=== PATIENT | male | born 1980 | race Caucasian/White ===

== ENCOUNTER 2025-01-27 18:57 | Emergency (ER) | payer BC, SELFPAY ==
[2025-01-27 19:02] VITALS: BP 177/130
[2025-01-27 19:33] VITALS: BP 150/67
[2025-01-27 19:35] VITALS: BMI 44.5
[2025-01-27 20:02] VITALS: BP 178/86
[2025-01-27 20:11] LABS: % Basophils 0.1 % (0-2); % Eosinophils 0.4 % (0-6); % Immature Granulocytes 0.4 % (0-0.5); % Monocytes 7.4 % (1.7-9.3); % Neutrophils 76.7 % (42.2-75.2); Absolute Lymphocytes 1.2 10^3/uL (1.2-3.4); Absolute Monocytes 0.6 10^3/uL (0.1-0.6); Hematocrit 38.7 % (39.0-52.0); Hemoglobin 13.4 g/dL (13.0-18.0); Mean Corp Hgb Conc. 34.6 g/dL (33.0-37.0); Mean Corpuscular Hgb 29.1 pg (27.0-31.0); Mean Corpuscular Volume 83.9 fL (80.0-94.0); Mean Platelet Volume 9.1 fL (7.4-10.4); Nucleated Red Blood Cells % 0 % (-); Platelet Count 272 10^3/uL (130-400); Red Blood Cell Count 4.61 10^6/uL (4.70-6.10); Red Cell Dist. Width 12.8 % (11.5-14.5); White Blood Cell Count 7.8 10^3/uL (4.8-10.8)
[2025-01-27 20:39] LABS: ALT (SGPT) 35 U/L (0-50); AST (SGOT) 35 U/L (17-59); Albumin 4.5 g/dl (3.5-5.0); Alkaline Phosphatase 57 U/L (38-126); Blood Urea Nitrogen 23 mg/dl (9-20); Calcium 9.2 mg/dl (8.4-10.2); Carbon Dioxide 26 mmol/L (22-30); Chloride 107 mmol/L (98-107); Estimated Creatinine Clearance > 125 ml/min; Glucose 129 mg/dl (70-99); Lipase 90 U/L (23-300); Sodium 140 mmol/L (135-145); Total Bilirubin 0.8 mg/dl (0.2-1.3); Total Protein 7.6 g/dl (6.3-8.2); eGFR > 60.00
[2025-01-27] MEDS: MORPHINE SULFATE 4 MG IV (20:43)
[2025-01-27] MEDS: ZOFRAN 4 MG IV (20:43)
[2025-01-27] MEDS: NSS 1000 IV (20:49)
[2025-01-27 20:53] VITALS: BP 183/100
[2025-01-27] MEDS: ATIVAN 1 MG IV (20:53)
--- NOTE | 2025-01-27 20:53 | ED.GENMED ---
History of Present Illness
General
Chief Complaint: Abdominal Pain
Time Seen by Provider: 01/27/25 19:40
History of Present Illness
History of Present Illness:
44-year-old male with history of diabetes on Ozempic presenting for persistent abdominal discomfort and vomiting. Patient reports that last week he went to [place] for a baseball tournament with his son. He started to have nausea, vomiting,
abdominal discomfort. He was admitted to the hospital, however no significant pathology was found. Patient reports being discharged 4 days ago, flew home. Today he again started to have generalized abdominal discomfort, anxiety, vomiting.
Preceding onset of symptoms prior to trip to [place], his dose was increased. No report of any diarrhea. Patient denies any abdominal surgeries in the past. He denies any fever. He denies any underlying history of anxiety, however has been
increasingly anxious due to recent symptoms. Denies additional acute medical complaint
Phy Exam
Physical Exam
Physical Exam:
General: Well-appearing, no clinical signs of dehydration, nontoxic and in no acute distress
HEENT: protecting airway
Neck: appears supple
CV: Normal heart rate, regular rhythm
Resp: No accessory muscle use, no increased work of breathing, lungs clear to auscultation bilaterally
Abd: Soft and non-distended, mild generalized nonfocal tenderness
Extremities: No deformities, no swelling
Neuro: alert, no focal neurologic deficit
: deferred
Rectal: deferred
Psych: Normal affect
Skin: Intact
Course
Orders/Labs/Results
Orders:
Orders
01/27/25 19:06
EKG [Electrocardiogram (*1)] Urgent
Reason for Study: Abdominal Pain
EKG- Treatment ONCE
01/27/25 20:00
Complete Blood Count/With Diff Urgent
Comprehensive Metabolic Panel Urgent
Lipase Urgent
01/27/25 20:21
CT Abd/pelvis W Iv Cont Urgent
Comment:
Reason For Exam: generalized pain and vomiting, on ozempic
0.9% Sodium Chloride 1000 ml [Nss] 1,000 ml IV BOLUS
Lorazepam [Ativan] 1 mg IV NOW STA
Morphine Sulfate 4 mg IV NOW STA
Ondansetron Injectable [Zofran] 4 mg IV NOW STA
Abnormal Lab Results
01/27/25
20:00
RBC 4.61 L 10^6/uL
(4.70-6.10)
Hct 38.7 L %
(39.0-52.0)
Neutrophils % 76.7 H %
(42.2-75.2)
Lymphocytes % 15.0 L %
(20.5-51.1)
BUN 23 H mg/dl
(9-20)
Glucose 129 H mg/dl
(70-99)
01/27/25 20:00
01/27/25 20:00
Vital Signs
Initial and Last Documented VS:
Initial Vital Signs
Temp Pulse Resp BP Pulse Ox
97.8 F 102 24 177/130 99
01/27/25 19:02 01/27/25 19:02 01/27/25 19:02 01/27/25 19:02 01/27/25 19:02
Last Documented Vital Signs
Temp Pulse Resp BP Pulse Ox
97.8 F 95 18 144/69 96
01/27/25 19:02 01/27/25 21:45 01/27/25 21:45 01/27/25 21:21 01/27/25 21:45
MDM/Problems Addressed
MDM/Problems Addressed:
44-year-old male with history of diabetes on Ozempic presenting to the emergency department for nausea, vomiting, abdominal pain for the past week. Vital signs on arrival are significant for high blood pressure and tachycardia, however patient
very anxious .
On exam patient is in no acute distress, generalized nonfocal tenderness. No rebound or guarding. Patient is otherwise afebrile, nontoxic. Ultimately suspect that symptoms are from medication reaction. Patient notes that symptoms started after
his dose increased for Ozempic, had unremarkable workup [id number]. Given persistence of symptoms, no present records available from the hospital in [place], will repeat laboratory analysis and CT imaging to ensure no complicating features such as
obstruction or intra-abdominal infection. For therapeutics, patient is requesting anxiety medications. Will also administer pain medication and Zofran.
23:20 - On reassessment, patient reports that he is feeling much better. Labs are unremarkable and CT without any acute pathology. At this time feel that patient is stable for discharge, improved vital signs. Recommending close outpatient primary
care follow-up regarding his plan with the Ozempic going forward. He is requesting a prescription for anxiety medication. Will provide a few days. Will also prescribe antiemetic. Strict return precautions communicated and patient verbalized
understanding.
*Pulse Oximetry
SaO2: 95
Oxygen Mode of Delivery: Room air
*Critical Care Note
Total Time (30-74mins, 75-104mins- exclusive of procedures): Not Applicable
ED Attending Note
-
Portions of this chart may have been created with voice recognition software.� Occasional wrong word or��sound alike� substitutions may have occurred due to the inherent limitations of voice recognition software.
Discharge Plan
Departure
Referrals:
Sophie Toledo CRNP [Family Provider]
Interventions
Interventions:
*Risk Screen - Suicide Last Done: 01/27/25 19:02
*General Assessment Last Done: 01/27/25 19:02
*Neglect/Abuse Screening Last Done: 01/27/25 19:02
*ED- Fall Risk Assessment Last Done: 01/27/25 19:40
*ED COVID-19 Vaccine History Last Done: 01/27/25 19:40
PN-Jkqyrw-Pwyenoqkfn Assessment Last Done: 01/27/25 19:40
Discharge Date and Time
Print Language: MALAGASY
[2025-01-27 21:21] VITALS: BP 144/69
[2025-01-27 23:13] VITALS: BP 164/86
== END 2025-01-27 23:39 | disposition home or self-care (01) ==
LOC: EMR 18:57
PROVIDERS: EMERGENCY PHYSICIAN Student in an Organized Health Care Education/Training Program; FAMILY PHYSICIAN Nurse Practitioner
DX: R10.9 Unspecified abdominal pain (principal); T38.3X5A Adverse effect of insulin and oral hypoglycemic [antidiabetic] drugs, initial encounter; E11.9 Type 2 diabetes mellitus without complications
CPT/HCPCS: 99285; 96374; 96375 ×2; 74177; 80053; 83690; 85025; 93005; Q9967

== ENCOUNTER 2025-01-29 10:43 | Emergency (ER) | payer BC, SELFPAY ==
[2025-01-29 10:49] VITALS: BP 182/95
--- NOTE | 2025-01-29 12:36 | ED.GENMED ---
History of Present Illness
General
Chief Complaint: Abdominal Symptoms
Source: patient and spouse
Exam Limitations: none
Time Seen by Provider: 01/29/25 12:25
Nursing documentation reviewed up to this point in time: agreed with
History of Present Illness
History of Present Illness:
The patient is a 44-year-old male with a past medical history of diabetes mellitus,
Presenting with generalized abdominal pain and nausea frequent vomiting, dry heaves. These symptoms began seven days ago when he was in [place], leading to an emergency room visit. During that visit, computed tomography (CT) scans of the abdomen
and esophagus were performed, and he was given intravenous fluids and medications for pain, nausea, and anxiety. He was admitted in ED for 3 days, then left to come home He reports continuous vomiting and inability to retain food or water.
Evaluated here 2 days ago for similar symptoms and had neg w/u including EKG, labs, lipase, CT abd/pelvis w IV contrast
Over past 7 days, he also experienced increased anxiety and episodes of hypertension, which are new for him. He reports stabbing abdominal pain and chills but didn't take temperature.
Pt states pain is 9/10, gnawing, burning upper abdomen.
Denies chest pain, or trouble breathing. states there was concern that the symptoms may be related to Ozempic (semaglutide), which he has been taking weekly for diabetes management, Metformin DC'd and started on Ozempic 6 months ago, upped from
1 mg to 2 mg weekly 14 days ago. Scheduled for out of town business trip so took his Ozempic 4 days early last week. Has had none since, missed this past weeks dose.
Past History
Past History
ED Past Medical History: NIDDM
ED Past Surgical History: Orthopedic
Social History
Tobacco: Non-smoker
Alcohol: Occasional
Personal:
Living: with family
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 However, there are no new sources of work-related stress reported.)
Review of Systems
Review of Systems
Allergies reviewed?: Yes
All Other Systems: ROS reviewed and negative except as documented in HPI and ROS
Constitutional: Reports chills; Denies fever
Respiratory: Denies trouble breathing
Cardiac: Denies chest pain
ABD/GI: Reports abdominal pain, nausea and vomiting; Denies diarrhea, bloody stools or black stools
: Denies dysuria, frequency or difficulty voiding
Musculoskeletal: Reports no symptoms
Skin: Reports no symptoms
Neurological: Reports no symptoms
Phy Exam
Physical Exam
Physical Exam:
GENERAL: Moderate distress due to pain, unable to sit still. A&Ox3.
CONSTITUTIONAL: Afebrile.
EYES: clear, conjunctivae normal
ENMT: moist mucus membranes, Pharynx nl
RESPIRATORY: Regular respirations, nonlabored, lungs clear.
CARDIOVASCULAR: Regular rate and rhythm, no murmurs, no rubs.
GI: Soft, morbidly obese, tender mid upper to left upper abdomen. No periumbilical tenderness. normal BS
MUSCULOSKELETAL: Moves with ease. Well perfused.
SKIN: Warm, dry, pink
PSYCH: Anxious mood and affect. Well kept, interactive and appropriate
NEUROLOGIC: Awake, alert and oriented. No focal neurological deficits
Course
Orders/Labs/Results
Orders:
Orders
01/29/25 10:52
EKG [Electrocardiogram (*1)] Urgent
Reason for Study: Fatigue / Weakness
EKG- Treatment ONCE
01/29/25 12:57
Ondansetron Injectable [Zofran] 4 mg IV NOW STA
01/29/25 12:59
0.9% Sodium Chloride 1000 ml [Nss] 1,000 ml IV BOLUS
01/29/25 13:01
HYDROmorphone [Dilaudid] 1 mg IV NOW STA
01/29/25 13:38
Complete Blood Count/With Diff Urgent
Comprehensive Metabolic Panel Urgent
Lactic Acid Urgent
Lipase Urgent
01/29/25 14:38
Pantoprazole [Protonix IV] 80 mg IV NOW STA
01/29/25 14:39
Ondansetron Injectable [Zofran] 4 mg IV NOW STA
Abnormal Lab Results
01/29/25
13:38
Absolute Neuts (auto) 7.8 H 10^3/uL
(1.4-6.5)
Neutrophils % 80.8 H %
(42.2-75.2)
Lymphocytes % 12.5 L %
(20.5-51.1)
Glucose 136 H mg/dl
(70-99)
01/29/25 13:38
01/29/25 13:38
Vital Signs
Initial and Last Documented VS:
Initial Vital Signs
Temp Pulse Resp BP Pulse Ox
98.2 F 89 14 182/95 100
01/29/25 10:49 01/29/25 10:49 01/29/25 10:49 01/29/25 10:49 01/29/25 10:49
Last Documented Vital Signs
Temp Pulse Resp BP Pulse Ox
98.2 F 85 16 168/95 97
01/29/25 14:23 01/29/25 15:31 01/29/25 15:31 01/29/25 15:31 01/29/25 15:31
MDM/Problems Addressed
Differential Diagnosis Includes:
cannabinoid hyperemesis syndrome, GI side effects from THC gummies, Pancreatitis.
MDM/Problems Addressed:
The patient is a 44-year-old male with a past medical history of diabetes mellitus,
Presenting with generalized abdominal pain and nausea frequent vomiting, dry heaves. These symptoms began seven days ago when he was in [place], leading to an emergency room visit. During that visit, computed tomography (CT) scans of the abdomen
and esophagus were performed, and he was given intravenous fluids and medications for pain, nausea, and anxiety. He was admitted in ED for 3 days, then left to come home He reports continuous vomiting and inability to retain food or water.
Evaluated here 2 days ago for similar symptoms and had neg w/u including EKG, labs, lipase, CT abd/pelvis w IV contrast
Over past 7 days, he also experienced increased anxiety and episodes of hypertension, which are new for him. He reports stabbing abdominal pain and chills but didn't take temperature.
Pt states pain is 9/10, gnawing, burning upper abdomen.
Denies chest pain, or trouble breathing. states there was concern that the symptoms may be related to Ozempic (semaglutide), which he has been taking weekly for diabetes management, Metformin DC'd and started on Ozempic 6 months ago, upped from
1 mg to 2 mg weekly 14 days ago. Scheduled for out of town business trip so took his Ozempic 4 days early last week. Has had none since, missed this past weeks dose.
2:30 PM: Back into evaluate patient
CBC, CMP with no clinically significant abnormality
Lipase normal
Patient has been quite comfortable since pain medication and IV fluids, no further vomiting
has copy of patient's records from [facility] that she showed me:
During the visit to the [place] ER, the patient was provided with several medications for symptom management. Lidocaine patches were prescribed for abdominal pain. The patient also received metoclopramide 10 mg tablets for use as needed for
gastrointestinal issues, along with capsaicin cream for abdominal application. Ondansetron was prescribed for nausea, and Miralax was recommended for constipation relief. Additionally, the patients existing medication regimen includes ezetimibe at
an adjusted dose of 2 mg, increased by 1 mg, gabapentin at 300 mg taken three times a day, and tizanidine as previously directed at 20 mg.
Back in and speaking with she informs me that pt does gummies on a daily basis.
Pt states he takes THC gummies, last was 1/2 one 2 days ago, he doesn't take them regularly like he used to.
Explained most likely Hyperemesis due to the THC
He states he threw his gummies out. Instructed not to take any more
Plan: GI follow up, rx for Zofran, Bentyl and Protonix, Capsaicin and Lorazepam sent to his pharmacy.
Tolerating crackers and kia ivett
Notified GI front office spec who will give him a call for appointment
Pt is stable for discharge
*Pulse Oximetry
SaO2: 100
Patient hypoxic: no
*EKG
EKG Intrepretation Date: 01/29/25
Interpretation: normal
Heart Rate: 84
Rate: normal
Rhythm: sinus
[place]: normal axis
Interval: normal interval
QRS Pattern: normal QRS
Ischemia: no ischemia
*Critical Care Note
Total Time (30-74mins, 75-104mins- exclusive of procedures): Not Applicable
ED Attending Note
-
Portions of this chart may have been created with voice recognition software.� Occasional wrong word or��sound alike� substitutions may have occurred due to the inherent limitations of voice recognition software.
Discharge Plan
Departure
Patient Disposition: Home (Routine Discharge)
Date of Disposition: 01/29/25
Time of Disposition: 15:16
Patient with high blood pressure during this ER visit?: Yes
Condition: Fair
Discharge Problem:
Hyperemesis
Instructions: Nausea and Vomiting, Adult (DC), Cannabis hyperemesis syndrome
Prescriptions:
New
capsaicin 0.1 % cream
1 applic topical BID Qty: 60 0RF
dicyclomine 20 mg tablet
20 mg PO QID PRN (Reason: abdominal cramping/pain) Qty: 30 0RF
pantoprazole [Protonix] 40 mg tablet,delayed release (DR/EC)
40 mg PO DAILY Qty: 30 0RF
ondansetron 4 mg tablet,disintegrating
4 mg PO Q8H PRN (Reason: nausea and vomiting) 5 Days Qty: 20 0RF
lorazepam 1 mg tablet
1 mg PO BID PRN (Reason: nausea and vomiting) Qty: 5 0RF
No Action
lorazepam [Ativan] 0.5 mg tablet
0.5 mg PO DAILY PRN (Reason: anxiety) Qty: 4 0RF
Referrals:
Sophie Toledo CRNP [Family Provider]
Kumar Magana MD [Active, Gastroenterology] - Next open appointment
Activity Restrictions/Additional Instructions:
As we discussed, you may have hyperemesis syndrome from the THC gummies. Stop them to avoid further episodes
I sent prescriptions to your pharmacy for: Zofran (Odansetron) to use as needed for nausea/vomiting, Capsaicin cream to apply to your abdominal wall twice daily, Protonix to decrease the acid in your stomach and Bentyl as needed for your stomach
spasm/pain.
Prescription for Lorazepam #5 tablets sent to take ONLY if none of the above work (for nausea/vomiting)
You will receive a call from the GI doctor office for an appointment.
Interventions
Interventions:
*Risk Screen - Suicide Last Done: 01/29/25 10:49
*General Assessment Last Done: 01/29/25 10:49
*Neglect/Abuse Screening Last Done: 01/29/25 10:49
*ED- Fall Risk Assessment Last Done: 01/29/25 13:42
*Nursing Disposition Last Done: 01/29/25 15:31
YT-Ymfwrx-Nnqhrjoglp Assessment Last Done: 01/29/25 13:42
Discharge Date and Time
Discharge Date/Time: 01/29/25 15:32
Print Language: [place]
[2025-01-29] MEDS: ZOFRAN 4 MG IV ×2 (13:34→14:50)
[2025-01-29] MEDS: DILAUDID 1 MG IV (13:34)
[2025-01-29] MEDS: NSS 1000 IV (13:34)
[2025-01-29 13:39] VITALS: BMI 42.1
[2025-01-29 13:56] LABS: % Basophils 0.2 % (0-2); % Eosinophils 0.3 % (0-6); % Immature Granulocytes 0.3 % (0-0.5); % Lymphocytes 12.5 % (20.5-51.1); % Monocytes 5.9 % (1.7-9.3); % Neutrophils 80.8 % (42.2-75.2); Absolute Lymphocytes 1.2 10^3/uL (1.2-3.4); Absolute Monocytes 0.6 10^3/uL (0.1-0.6); Absolute Neutrophils 7.8 10^3/uL (1.4-6.5); Hematocrit 40.7 % (39.0-52.0); Mean Corp Hgb Conc. 34.4 g/dL (33.0-37.0); Mean Corpuscular Hgb 28.9 pg (27.0-31.0); Mean Corpuscular Volume 84.1 fL (80.0-94.0); Mean Platelet Volume 9.3 fL (7.4-10.4); Nucleated Red Blood Cells % 0 % (-); Platelet Count 267 10^3/uL (130-400); Red Blood Cell Count 4.84 10^6/uL (4.70-6.10); Red Cell Dist. Width 12.8 % (11.5-14.5); White Blood Cell Count 9.6 10^3/uL (4.8-10.8)
[2025-01-29 14:09] LABS: Lactic Acid 1.2 mmol/L (0.7-2.0)
[2025-01-29 14:13] LABS: ALT (SGPT) 37 U/L (0-50); AST (SGOT) 30 U/L (17-59); Albumin 4.8 g/dl (3.5-5.0); Alkaline Phosphatase 66 U/L (38-126); Blood Urea Nitrogen 18 mg/dl (9-20); Calcium 9.8 mg/dl (8.4-10.2); Carbon Dioxide 22 mmol/L (22-30); Chloride 106 mmol/L (98-107); Estimated Creatinine Clearance > 125 ml/min; Glucose 136 mg/dl (70-99); Lipase 119 U/L (23-300); Potassium 4.2 mmol/L (3.5-5.1); Sodium 141 mmol/L (135-145); Total Bilirubin 0.8 mg/dl (0.2-1.3); Total Protein 7.9 g/dl (6.3-8.2); eGFR > 60.00
[2025-01-29 14:23] VITALS: BP 155/111
[2025-01-29] MEDS: PROTONIX IV 80 MG IV (14:50)
[2025-01-29 15:31] VITALS: BP 168/95
== END 2025-01-29 15:32 | disposition home or self-care (01) ==
LOC: EMR 10:43
PROVIDERS: Registered Nurse; EMERGENCY PHYSICIAN Emergency Medicine; FAMILY PHYSICIAN Nurse Practitioner
DX: R11.2 Nausea with vomiting, unspecified (principal); E11.9 Type 2 diabetes mellitus without complications; Z79.85 Long-term (current) use of injectable non-insulin antidiabetic drugs
CPT/HCPCS: 96374; 96375; 96376; 96361; 99284; 80053; 83605; 83690; 85025; 93005